=== PATIENT | female | born 1980 | race Caucasian/White ===

== ENCOUNTER 2016-12-23 07:21 | Emergency (ER) | payer BC ==
[~2016-12-23] VITALS: Ht 157.5 cm; Wt 65.0 kg
[2016-12-23 07:27] VITALS: BP 102/61; PULSE 66; RESP 20; TEMP 97.2; O2SAT 96
[2016-12-23] MEDS ORDERED: SODIUM CHLORIDE 0.9% FLUSH 10 ML FLUSH IVF PRN (07:45)
--- NOTE | 2016-12-23 07:48 | PD ---
HPI Chief Complaint: Chest Pain Time Seen by Provider: 07:25 Travel History International Travel<30 days: No Contact w/Intl Traveler<30days: No Traveled to known affect area: No History of Present Illness HPI The patient was seen and examined in the presence of the nurse. This patient complains of chest pain. sHe is brought in by paramedics. She woke up at 6 AM with a left-sided chest pressure. Duration 90 minutes. Severity is moderate. No injury. No cough or fever. Patient seems drowsy/overmedicated. She initially denies taking any medications or drugs. She later admits to taking Percocet that she gets from a friend. She denies intentional overdose. She is very evasive about questions regarding drug use. No alleviating factors. PFSH Past Medical History Medical History: Denies Significant Hx Diminished Hearing: No ?: Not Dilation and Curettage (D&C): Yes Past Surgical History Appendectomy: Yes Social History Alcohol Use: No Tobacco Use: No Substance Use: No (refuses to answer) Allergies-Medications (Allergen,Severity, Reaction): Coded Allergies: No Known Allergies (Unverified , 12/23/16) Review of Systems General / Constitutional: No: Fever Eyes: No: Visual changes HENT: No: Headaches Cardiovascular: Positive: Chest Pain or Discomfort Respiratory: No: Shortness of Breath Gastrointestinal: No: Abdominal Pain Genitourinary: No: Dysuria Musculoskeletal: No: Pain Skin: No Rash Neurologic: No: Weakness Psychiatric: No: Depression Endocrine: No: Polydipsia Hematologic/Lymphatic: No: Easy Bruising Physical Exam Narrative GENERAL: Well-nourished, well-developed patient in no apparent distress. SKIN: Focused skin assessment reveals no rash and nodules. Skin is Warm and dry. HEAD: Atraumatic. Normocephalic. EYES: Pupils equal and round. No scleral icterus. No injection or drainage. ENT: No nasal bleeding or discharge. Mucous membranes pink and moist. NECK: Trachea midline. No JVD. CARDIOVASCULAR: Regular rate and rhythm. No murmur appreciated. RESPIRATORY: No accessory muscle use. Clear to auscultation. Breath sounds equal bilaterally. GASTROINTESTINAL: Abdomen soft, non-tender, nondistended. Hepatic and splenic margins not palpable. MUSCULOSKELETAL: No obvious deformities. No clubbing. No cyanosis. No edema. Some left-sided chest wall tenderness without objective findings NEUROLOGICAL: Awake but drowsy appearing. No obvious cranial nerve deficits. Motor grossly within normal limits. Normal speech. PSYCHIATRIC: Drowsy and lethargic mood and flat affect; insight and judgment reduced . Data Data Last Documented VS Vital Signs Date Time Temp Pulse Resp B/P Pulse Ox O2 Delivery O2 Flow Rate FiO2 12/23/16 10:09 76 20 108/67 96 12/23/16 07:31 Room Air 12/23/16 07:27 97.2 Orders Electrocardiogram (12/23/16 ) Basic Metabolic Panel (Bmp) (12/23/16 07:41) Ckmb (Isoenzyme) Profile (12/23/16 07:41) Complete Blood Count With Diff (12/23/16 07:41) Prothrombin Time / Inr (Pt) (12/23/16 07:41) Act Partial Throm Time (Ptt) (12/23/16 07:41) Troponin I (12/23/16 07:41) Chest, Single Ap (12/23/16 07:41) Ecg Monitoring (12/23/16 07:41) Iv Access Insert/Monitor (12/23/16 07:41) Oximetry (12/23/16 07:41) Sodium Chloride 0.9% Flush (Ns Flush) (12/23/16 07:45) Alcohol (Ethanol) (12/23/16 07:41) Drug Screen, Random Urine (12/23/16 07:41) Tylenol (Acetaminophen) (12/23/16 07:41) CKMB (12/23/16 07:45) CKMB% (12/23/16 07:45) Potassium Bicarb Eff (Effer-K Eff) (12/23/16 09:30) Labs Laboratory Tests Test 12/23/16 12/23/16 07:45 08:54 White Blood Count 5.4 TH/MM3 Red Blood Count 3.96 MIL/MM3 Hemoglobin 11.2 GM/DL Hematocrit 33.4 % Mean Corpuscular Volume 84.3 FL Mean Corpuscular Hemoglobin 28.2 PG Mean Corpuscular Hemoglobin 33.4 % Concent Red Cell Distribution Width 14.3 % Platelet Count 208 TH/MM3 Mean Platelet Volume 7.4 FL Neutrophils (%) (Auto) 80.8 % Lymphocytes (%) (Auto) 13.9 % Monocytes (%) (Auto) 4.1 % Eosinophils (%) (Auto) 0.8 % Basophils (%) (Auto) 0.4 % Neutrophils # (Auto) 4.4 TH/MM3 Lymphocytes # (Auto) 0.7 TH/MM3 Monocytes # (Auto) 0.2 TH/MM3 Eosinophils # (Auto) 0.0 TH/MM3 Basophils # (Auto) 0.0 TH/MM3 CBC Comment DIFF FINAL Differential Comment Prothrombin Time 10.5 SEC Prothromb Time International 1.0 RATIO Ratio Activated Partial 25.7 SEC Thromboplast Time Sodium Level 142 MEQ/L Potassium Level 3.0 MEQ/L Chloride Level 110 MEQ/L Carbon Dioxide Level 23.3 MEQ/L Anion Gap 9 MEQ/L Blood Urea Nitrogen 15 MG/DL Creatinine 0.71 MG/DL Estimat Glomerular Filtration 94 ML/MIN Rate Random Glucose 116 MG/DL Calcium Level 7.8 MG/DL Total Creatine Kinase 344 U/L Creatine Kinase MB 4.1 NG/ML Creatine Kinase MB % 1.2 % Troponin I LESS THAN 0.02 NG/ML Acetaminophen Level 3.1 MCG/ML Ethyl Alcohol Level LESS THAN 3 MG/DL Urine Opiates Screen NEG Urine Barbiturates Screen NEG Urine Amphetamines Screen NEG Urine Benzodiazepines Screen NEG Urine Cocaine Screen NEG Urine Cannabinoids Screen POS MDM Medical Decision Making Medical Screen Exam Complete: Yes Emergency Medical Condition: Yes Medical Record Reviewed: Yes Differential Diagnosis Differential diagnosis includes OH, angina, pericarditis, pleurisy, GERD, anxiety. Narrative Course I have reviewed the patient's electronic medical record. Patient is never been to the ER before IV placed I reviewed the EKG which shows sinus rhythm and no ST elevation I reviewed the chest x-ray which is normal Extended cardiac monitoring shows sinus rhythm without ectopy CBC is normal Metabolic profile shows hypokalemia which is replaced orally here CK is normal Troponin is normal Coagulation studies are normal Alcohol level is negative Tox screen is positive for marijuana Tylenol level is very low Patient has readily reproducible chest wall pain on clinical exam. Cardiac workup here is negative. Stable for outpatient follow-up with her primary physician. She should call them sooner she can to get a follow-up. Should return if she worsens. This does not require inpatient evaluation or urgent stress testing. Diagnosis Primary Impression: Chest pain in adult Additional Instructions: The patient was advised to follow up with their physician and return if they worsen. Med/Other Pt SpecificInfo: Other Disposition: 01 DISCHARGE HOME Condition: Stable Sree Greenfield MD December 23, 2016 07:48
--- NOTE | 2016-12-23 07:57 | RADRPT ---
EXAM DATE/TIME: 12/23/2016 07:54 [facility] COMPARISON: No previous studies available for comparison. INDICATIONS : Chest pain. MEDICAL HISTORY : None. SURGICAL HISTORY : None. ENCOUNTER: Initial ACUITY: 1 day PAIN SCORE: 8/10 LOCATION: Bilateral chest FINDINGS: Portable AP view of the chest demonstrates a normal-sized cardiac silhouette. No effusion, consolidat ion, or pneumothorax is visualized. The bones and soft tissues demonstrate no acute abnormality. Lung s are underinflated. EKG lines overlie the patient. CONCLUSION: Underinflated examination. No acute cardiopulmonary abnormality is identified. Srinivas Mckee MD on December 23, 2016 at 7:55 Board Certified Radiologist. This report was verified electronically.
[2016-12-23 08:04] LABS: AUTOMATED NEUTROPHIL # 4.4 TH/MM3 (1.8-7.7); BASOPHIL % 0.4 % (0.0-2.0); EOSINOPHIL % 0.8 % (0.0-4.0); HEMATOCRIT 33.4 % (35.0-46.0); HEMO FLAGS DIFF FINAL; LYMPH % 13.9 % (9.0-44.0); LYMPHOCYTE # 0.7 TH/MM3 (1.0-4.8); MEAN CELL VOLUME 84.3 FL (80.0-100.0); MEAN CORPUSCULAR HEMOGLOBIN 28.2 PG (27.0-34.0); MEAN CORPUSCULAR HGB CONC 33.4 % (32.0-36.0); MONO % 4.1 % (0.0-8.0); NEUT % 80.8 % (16.0-70.0); PLATELET COUNT 208 TH/MM3 (150-450); RED BLOOD COUNT 3.96 MIL/MM3 (4.00-5.30); RED CELL DISTRIBUTION WIDTH 14.3 % (11.6-17.2); WHITE BLOOD COUNT 5.4 TH/MM3 (4.0-11.0)
[2016-12-23 08:17] LABS: APTT (PATIENT) 25.7 SEC (24.3-30.1); PROTHROMBIN TIME - PATIENT 10.5 SEC (9.8-11.6)
[2016-12-23 08:20] LABS: ACETAMINOPHEN 3.1 MCG/ML (10.0-30.0); ANION GAP 9 MEQ/L (5-15); BICARBONATE 23.3 MEQ/L (21.0-32.0); BLOOD UREA NITROGEN 15 MG/DL (7-18); CHLORIDE 110 MEQ/L (98-107); GLOMERULAR FILTRATION RATE 94 ML/MIN (>89); SODIUM (NA) 142 MEQ/L (136-145)
[2016-12-23 08:24] LABS: CREATINE KINASE 344 U/L (26-192)
[2016-12-23 08:36] LABS: CKMB 4.1 NG/ML (0.5-3.6)
[2016-12-23 09:25] LABS: AMPHETAMINE, URINE NEG (NEG); BARBITURATES, URINE NEG (NEG); COCAINE, URINE NEG (NEG)
[2016-12-23] MEDS ORDERED: POTASSIUM BICARBONATE 25 MEQ EFFERVESCENT TAB PO ONE (09:30)
[2016-12-23 10:09] VITALS: BP 108/67
--- NOTE | 2016-12-24 16:33 | EKG ---
Date Performed: 12/23/2016 Time Performed: 07:31:42 PTAGE: 36 years EKG: SINUS ARRHYTHMIA NORMAL ECG NO PREVIOUS TRACING DOCTOR: Alistair Reddy Interpretating Date/Time 12/24/2016 16:32:33
== END 2016-12-23 10:24 | disposition home or self-care (01) ==
LOC: NEPC 07:21
DX: R07.9 Chest pain, unspecified (principal); E87.6 Hypokalemia
CPT/HCPCS: 71010; 80048; 80307; 82550; 82552; 84484; 85025; 85610; 85730; 93005; 99285